=== PATIENT | male | born 1945 | race Caucasian/White ===

== ENCOUNTER 2018-08-22 13:36 | Inpatient (IN) ==
[2018-08-22 14:38] LABS: Apearance,Urine CLEAR (Clear); Bilirubin,Urine Negative (Negative); Blood, Urine Negative (Negative); Glucose,Urine (UA) 150 mg/dL (Negative); Ketones,Urine Negative (Negative); Mucus,Urine Occasional /LPF (Occasional); Nitrite,Urine Negative (Negative); Protein,Urine Negative; RBC,Urine 1 /HPF (0-4); Urine Color Straw (Yellow); Urine Specific Gravity 1.006 (1.001-1.035); Urine Urobilinogen < 2.0 EU/DL (0.2-1.0); WBC,Urine <1 /HPF (0-6)
[2018-08-22 15:05] LABS: Barbiturates Screen,Urine Negative (Negative); Benzodiazepines Screen,Urine Negative (Negative); Cannabinoid Screen,Urine Negative (Negative); Opiate Screen,Urine Negative (Negative); Phencyclidine Screen,Urine Negative (Negative)
[2018-08-22 15:08] LABS: Basophils # 0.1 10*3/uL (0.0-0.2); Basophils % 0.9 % (0.0-0.8); Eosinophils # 0.2 10*3/uL (0.0-0.87); Eosinophils % 2.7 % (0.00-10.9); Immature Granulocytes % 0.6 %; Immature Granulocytes Absolute 0.05 #; Lymphocytes # 2.1 10*3/uL (1.4-4.0); Lymphocytes % 23.7 % (21.2-54.2); Mean Corpuscular HGB Conc 30.8 GM/DL (32-36); Mean Corpuscular Hemoglobin 27 PG (27-34); Mean Corpuscular Volume 87.4 FL (87-102); Mean Platelet Volume 11.3 FL (9.6-12.0); Monocytes # 0.8 10*3/uL (0.11-0.8); Monocytes % 9.2 % (1.7-12.7); Neutrophils # 5.6 10*3/uL (1.4-7.4); Neutrophils % 62.9 % (38.7-73.9); Platelet Count 195 T/CUMM (130-400); Red Blood Count 4.46 MC/CUMM (3.8-5.5); Red Cell Distribution Width 14.5 % (9.3-17.3); White Blood Count 8.9 T/CUMM (4-12)
[2018-08-22 15:17] LABS: INR 1.2; PT Patient Result 12.8 SECS; Partial Thromboplastin Time 27.3 SECS (0-40)
[2018-08-22 15:33] LABS: Albumin 3.6 G/DL (3.4-5.0); Bilirubin,Total 0.6 MG/DL (0.2-1.0); Calcium 8.2 MG/DL (8.5-10.1); Osmolality,Calculated 287.8 MOS/KG (273-304); Potassium 3.2 MMOL/L (3.5-5.1); Total Protein 6.7 G/DL (6.4-8.3)
[2018-08-22 16:05] LABS: Sedimentation Rate-Westergren 19 MM/HR (0-20)
[2018-08-22] MEDS ORDERED: cefTRIAXone 1,000 MG in SODIUM CHLORIDE 0.9% 100 ML IV STA (16:14)
[2018-08-22] MEDS ORDERED: diphenhydrAMINE CAP 25 MG CAPSULE PO PRN (17:27)
[2018-08-22] MEDS ORDERED: DEXTROSE 50% 25 GM/50 ML SYRINGE IV PRN (17:27)
[2018-08-22] MEDS ORDERED: NICOTINE 21 MG/24 HR PATCH TRANSDERM PRN (17:27)
[2018-08-22] MEDS ORDERED: ONDANSETRON 4 MG/2 ML VIAL IV PRN (17:27)
[2018-08-22] MEDS ORDERED: POTASSIUM CHLORIDE 20 MEQ TABLET PO PRN (17:27)
[2018-08-22] MEDS ORDERED: ACETAMINOPHEN 325 MG TABLET PO PRN (17:27)
[2018-08-22] MEDS ORDERED: GLUCAGON 1 MG VIAL IM PRN (17:27)
[2018-08-22] MEDS ORDERED: guaiFENesin/DM ER 600-30 MG TABLET PO PRN (17:27)
[2018-08-22] MEDS ORDERED: MORPHINE 4 MG/1 ML VIAL IV PRN (17:27)
[2018-08-22] MEDS ORDERED: ENOXAPARIN 40 MG/0.4 ML SYRINGE SUBCUT SCH (17:30)
[2018-08-22] MEDS ORDERED: NITROGLYCERIN SL 0.4 MG TABLET SL PRN (17:42)
[2018-08-22] MEDS: ALBUTEROL/IPRATROPIUM 3 ML NEB RESP TX SCH (19:08)
[2018-08-22 20:42] LABS: Risk Ratio 2.6; Thyroid Stimulating Hormone 2.35 uIU/ml (0.358-3.74); VLDL CHOLESTEROL 13.4 MG/DL
[2018-08-22] MEDS: INSULIN REGULAR 100 UNIT/ML SUBCUT SCH (21:37)
[2018-08-22] MEDS: CALCIUM CARBONATE CHEW 500 MG TABLET PO SCH (21:37)
[2018-08-22] MEDS: MAGNESIUM OXIDE 400 MG TABLET PO SCH (21:38)
[2018-08-22] MEDS: ROSUVASTATIN 20 MG TABLET PO SCH (21:38)
[2018-08-22] MEDS: AZITHROMYCIN INJ 500 MG in SODIUM CHLORIDE 0.9% 250 ML IV SCH (21:38)
[2018-08-22] MEDS: BENAZEPRIL 10 MG TABLET PO SCH (21:38)
[2018-08-22] MEDS: NEBIVOLOL 10 MG TABLET PO SCH (21:38)
[2018-08-22] MEDS: APIXABAN 5 MG TABLET PO SCH (21:38)
[2018-08-23] MEDS: ALBUTEROL/IPRATROPIUM 3 ML NEB RESP TX SCH ×4 (00:23→19:50)
[2018-08-23 05:01] LABS: Basophils # 0.1 10*3/uL (0.0-0.2); Basophils % 0.7 % (0.0-0.8); Eosinophils # 0.2 10*3/uL (0.0-0.87); Eosinophils % 2.4 % (0.00-10.9); Hematocrit 36.1 VOL% (42.0-52.0); Hemoglobin 11.1 GM/DL (14.0-18.0); Immature Granulocytes % 0.3 %; Immature Granulocytes Absolute 0.03 #; Lymphocytes # 1.6 10*3/uL (1.4-4.0); Lymphocytes % 17.6 % (21.2-54.2); Mean Corpuscular HGB Conc 30.7 GM/DL (32-36); Mean Corpuscular Hemoglobin 27 PG (27-34); Mean Platelet Volume 11.8 FL (9.6-12.0); Monocytes # 0.8 10*3/uL (0.11-0.8); Monocytes % 9.1 % (1.7-12.7); Neutrophils # 6.2 10*3/uL (1.4-7.4); Neutrophils % 69.9 % (38.7-73.9); Platelet Count 163 T/CUMM (130-400); Red Blood Count 4.15 MC/CUMM (3.8-5.5); Red Cell Distribution Width 14.4 % (9.3-17.3); White Blood Count 8.8 T/CUMM (4-12)
[2018-08-23 05:24] LABS: Albumin 3.1 G/DL (3.4-5.0); Bilirubin,Total 0.6 MG/DL (0.2-1.0); Calcium 7.5 MG/DL (8.5-10.1); Osmolality,Calculated 290.7 MOS/KG (273-304); Potassium 3.2 MMOL/L (3.5-5.1); Total Protein 5.9 G/DL (6.4-8.3)
[2018-08-23] MEDS: cefTRIAXone 1,000 MG in SYRINGE 1 EACH IV SCH ×2 (05:50→18:43)
[2018-08-23] MEDS: MAGNESIUM OXIDE 400 MG TABLET PO SCH ×2 (08:41→21:00)
[2018-08-23] MEDS: CALCIUM CARBONATE CHEW 500 MG TABLET PO SCH ×2 (08:42→21:02)
[2018-08-23] MEDS: PANTOPRAZOLE 40 MG TABLET PO SCH (08:42)
[2018-08-23] MEDS: FUROSEMIDE 20 MG/2 ML VIAL IV SCH (08:43)
[2018-08-23] MEDS: AMIODARONE 200 MG TABLET PO SCH (08:43)
[2018-08-23] MEDS: APIXABAN 5 MG TABLET PO SCH ×2 (08:43→21:00)
[2018-08-23] MEDS: INSULIN REGULAR 100 UNIT/ML SUBCUT SCH ×4 (11:00→20:55)
[2018-08-23] MEDS: CHOLECALCIFEROL 5,000 UNIT TABLET PO SCH (14:47)
[2018-08-23] MEDS: BENAZEPRIL 10 MG TABLET PO SCH ×2 (14:47→20:59)
[2018-08-23] MEDS: ASPIRIN EC 81 MG TABLET PO SCH (15:50)
[2018-08-23] MEDS: AZITHROMYCIN INJ 500 MG in SODIUM CHLORIDE 0.9% 250 ML IV SCH (20:56)
[2018-08-23] MEDS: NEBIVOLOL 10 MG TABLET PO SCH (21:01)
[2018-08-23] MEDS: ROSUVASTATIN 20 MG TABLET PO SCH (21:01)
[2018-08-24] MEDS: ALBUTEROL/IPRATROPIUM 3 ML NEB RESP TX SCH ×4 (01:16→19:25)
[2018-08-24] MEDS: cefTRIAXone 1,000 MG in SYRINGE 1 EACH IV SCH ×2 (06:16→17:46)
[2018-08-24] MEDS: INSULIN REGULAR 100 UNIT/ML SUBCUT SCH ×4 (08:27→20:13)
[2018-08-24] MEDS: MAGNESIUM OXIDE 400 MG TABLET PO SCH ×2 (08:29→20:11)
[2018-08-24] MEDS: BENAZEPRIL 10 MG TABLET PO SCH ×2 (08:29→20:17)
[2018-08-24] MEDS: PANTOPRAZOLE 40 MG TABLET PO SCH (08:29)
[2018-08-24] MEDS: FUROSEMIDE 20 MG/2 ML VIAL IV SCH (08:29)
[2018-08-24] MEDS: CHOLECALCIFEROL 5,000 UNIT TABLET PO SCH (08:29)
[2018-08-24] MEDS: APIXABAN 5 MG TABLET PO SCH ×2 (08:30→20:10)
[2018-08-24] MEDS: CALCIUM CARBONATE CHEW 500 MG TABLET PO SCH ×2 (08:30→20:10)
[2018-08-24] MEDS: AMIODARONE 200 MG TABLET PO SCH (08:30)
[2018-08-24] MEDS: ASPIRIN EC 81 MG TABLET PO SCH (08:30)
[2018-08-24] MEDS: amLODIPine 5 MG TABLET PO SCH (12:17)
[2018-08-24] MEDS: NEBIVOLOL 10 MG TABLET PO SCH (20:10)
[2018-08-24] MEDS: ROSUVASTATIN 20 MG TABLET PO SCH (20:11)
[2018-08-24] MEDS: AZITHROMYCIN INJ 500 MG in SODIUM CHLORIDE 0.9% 250 ML IV SCH (20:17)
[2018-08-25] MEDS: ALBUTEROL/IPRATROPIUM 3 ML NEB RESP TX SCH ×3 (00:15→12:45)
[2018-08-25 04:44] LABS: Calcium 7.3 MG/DL (8.5-10.1); Osmolality,Calculated 289.3 MOS/KG (273-304); Potassium 3.7 MMOL/L (3.5-5.1)
[2018-08-25] MEDS: CALCIUM CARBONATE CHEW 500 MG TABLET PO SCH (08:47)
[2018-08-25] MEDS: AMIODARONE 200 MG TABLET PO SCH (08:47)
[2018-08-25] MEDS: ASPIRIN EC 81 MG TABLET PO SCH (08:47)
[2018-08-25] MEDS: MAGNESIUM OXIDE 400 MG TABLET PO SCH (08:47)
[2018-08-25] MEDS: PANTOPRAZOLE 40 MG TABLET PO SCH (08:47)
[2018-08-25] MEDS: amLODIPine 5 MG TABLET PO SCH (08:48)
[2018-08-25] MEDS: CHOLECALCIFEROL 5,000 UNIT TABLET PO SCH (08:48)
[2018-08-25] MEDS: APIXABAN 5 MG TABLET PO SCH (08:48)
[2018-08-25] MEDS: cefTRIAXone 1,000 MG in SYRINGE 1 EACH IV SCH (08:54)
[2018-08-25] MEDS: FUROSEMIDE 20 MG/2 ML VIAL IV SCH (08:57)
[2018-08-25] MEDS: INSULIN REGULAR 100 UNIT/ML SUBCUT SCH ×2 (08:59→11:55)
[2018-08-25] MEDS: BENAZEPRIL 10 MG TABLET PO SCH (09:01)
[2018-08-25] MEDS ORDERED: FUROSEMIDE 20 MG TABLET PO ONE (09:21)
[2018-08-25] MEDS ORDERED: hydrALAZINE 25 MG TABLET PO PRN (09:22)
[2018-08-25 11:53] VITALS: BP 149/71
== END 2018-08-25 13:10 | DRG 64 ==
LOC: EDBD → EDUNIT# → N.ED 13:36 → SUATTDRO 17:27 → N.EDINP 17:27 → N.4E 19:10
PROVIDERS: ADMIT Emergency Medicine; ATTEND Internal Medicine Infectious Disease